=== PATIENT | female | born 1960 | race Caucasian/White ===

== ENCOUNTER 2017-11-17 21:42 | Emergency (ER) | payer MEDICAID ==
[~2017-11-17] VITALS: Ht 165.1 cm; Wt 87.5 kg
[~2017-11-17 21:42] MED LIST: AMLODIPINE BESYL5 M1 PO; BENAZEPRIL10 M1 PO; GOOD SENSE ASPI81 M3 PO; NEU300 PO; NEURONTIN600 MG PO; PRILOSEC20 MG PO; ROBAXIN500 MG; TRAZODONE HYDR100 MG PO; WELLBUTRIN XL150 M1 PO
[2017-11-17 21:52] VITALS: Ht 165.1 cm; Wt 87.5 kg
[2017-11-18 01:02] VITALS: BP 159/99
== END 2017-11-18 01:03 | disposition home or self-care (01) ==
LOC: ED 21:42
DX: G44.209 Tension-type headache, unspecified, not intractable (principal); I10 Essential (primary) hypertension; J45.909 Unspecified asthma, uncomplicated; M06.9 Rheumatoid arthritis, unspecified; Z88.2 Allergy status to sulfonamides
CPT/HCPCS: J1885; J8597

== ENCOUNTER 2019-05-14 11:30 | Inpatient (IN) | payer MEDICAID ==
[~2019-05-14] VITALS: Ht 165.1 cm; Wt 88.0 kg
[~2019-05-14 11:30] MED LIST changes: +PRILOSEC OTC20 M1; -PRILOSEC20 MG PO
[2019-05-14 11:51] VITALS: Ht 165.1 cm; Wt 88.0 kg
--- NOTE | 2019-05-14 13:34 | NUR ---
PATIENT AAOX4 PRESENTS TO THE ED WITH C/O ONGOING FLU LIKE SYMPTOMS X 10 DAYS WITH NO RELIEF FROM OTC MEDICATIONS. PT STS SHE HAS HAD A PRODUCTIVE COUGH WITH SAMUEL LIKE PHLEGM, N/V/D. BREATHING E/U, SKIN WARM DRY AND INTACT. NO OTHER SS OF DISTRESS NOTED. PT PLACED ON MONITORS FOR FURTHER OBSERVATION. WILL CONTINUE TO MONITOR.
--- NOTE | 2019-05-14 14:00 | NUR ---
PATIENT LYING ON GURNEY- NAD NOTED. WILL CONTINUE TO MONITOR.
[2019-05-14 14:33] LABS: BASOPHIL % 0.2 % (0-2); PLATELET COUNT 148 x10^3mcL (130-400); RED CELL DISTRIBUTION WIDTH 14.3 % (11.5-14.5)
[2019-05-14 14:54] LABS: CALCIUM 8.3 mg/dL (8.5-10.1); CARBON DIOXIDE 29.3 mmol/L (21-32); CHLORIDE SERUM 100 mmol/L (98-107); CREATININE SERUM 0.7 mg/dL (0.6-1.0); GFR1 > 60 mL/min; GLUCOSE SERUM 224 mg/dL (74-106); POTASSIUM SERUM 3.2 mmol/L (3.5-5.1); SODIUM SERUM 137 mmol/L (136-145)
[2019-05-14 15:08] LABS: ALBUMIN 3.6 g/dL (3.4-5.0); ALKALINE PHOSPHATASE 83 U/L (46-116); ALT/SGPT 72 U/L (14-59); AST/SGOT 51 U/L (15-37); BILIRUBIN TOTAL 0.44 mg/dL (0.20-1.00); CHOLESTEROL 198 mg/dL (<200); HDL CHOLESTEROL 41 mg/dL (40-60); LIPASE 145 IU/L (73-393); T4(THYROXINE) 8.1 ug/dL (4.7-13.3); TOTAL PROTEIN, SERUM 8.1 g/dL (6.4-8.2)
[2019-05-14 16:54] LABS: UA SPECIFIC GRAVITY 1.015 (1.005-1.035); microscopic required? YES; urine erythrocyte NEGATIVE (NEGATIVE)
[2019-05-14 17:05] LABS: AMPHETAMINE QUAL UR NONE DETECTED (See below)
--- NOTE | 2019-05-14 17:13 | NUR ---
PATIENT LYING ON GURNEY WITH DAUGHTER BEDSIDE WHILE PATIENT IS "TEXTING" ON PHONE. NO SS OF DISTRESS NOTED. WILL CONTINUE TO MONITOR.
[2019-05-14] MEDS ORDERED: LOSARTAN POTASS25 M1 PO (17:27)
[2019-05-14] MEDS ORDERED: BASAGLAR K100 UNIT/1 (17:27)
[2019-05-14] MEDS ORDERED: PREDNISONE2.5 MG PO (17:27)
[2019-05-14] MEDS ORDERED: CUTIVATE0.05% (17:28)
[2019-05-14] MEDS ORDERED: ENBREL25 MG/0.5 (17:29)
[2019-05-14] MEDS ORDERED: HYDROXYZINE HYD25 MG PO (17:30)
[2019-05-14] MEDS ORDERED: ESCITALOPRAM20 M1 PO (17:30)
[2019-05-14 17:38] VITALS: BP 168/96
--- NOTE | 2019-05-14 17:44 | NUR ---
PT MEDICATED PER EMAR.
--- NOTE | 2019-05-14 17:58 | NUR ---
REPORT PROVIDED TO JESSI FOR CONTINUED CARE OF PATIENT.
--- NOTE | 2019-05-14 18:40 | NUR ---
PT CAME FROM ED BY TREVIN ACCOMPANIED BY DAUGHTER. HILARIO WATSON GAVE REPORT. PT IS AAOX4. LUNG SOUNDS DIMINISHED BILATERALLY. PT HAS C/O COUGH WITH GREEN PHLEGM. ON R/A. TELE [address] READ[address] NST WITH DEPRESSED T WAVE. PT DENIES C/P AT THIS TIME. ABDOMEN SOFT, NONTENDER, ROUND. BOWEL SOUNDS ACTIVE X4 QUADS. PT HAS C/O VOMITING INTERMITTENTLY THE LAST 10 DAYS. IV CATH TO RFA WITH FLUIDS RUNNING. SITE WNL. NO S/S OF INFECTION OR INFILTRATION NOTED. REPORTED TO DR. MACIAS, NO NEW ORDERS AT THIS TIME. VS 97.6F, HR 72, RR 18, B/P 181/97, O2 SAT 99 ON R/A. PT JUST RECEIVED CATAPRES IN ED. WILL CONTINUE TO MONITOR B/P. PT ORIENTED TO ROOM AND CALL LIGHT. WILL ENDORSE ALL CARE TO NICO RICH.
[2019-05-14 18:41] VITALS: BP 181/97
--- NOTE | 2019-05-14 19:35 | NUR ---
RECEIVED PT FROM PENELOPE BERRIOS RN. PT AA0X4 DENIES SAAB/DIZZINESS. BREATHING EVEN AND UNLABORED ON RA WITH NO SOB NOTED. PT HAS TELE #2 NSR WITH DEPRESSED T WAVE. DENIES CHEST PAIN/PRESSURE. IV PATENT, INFUSING WELL. PT AMBULATORY. PT DENIES ANY PAIN. NO SIGNS OF ACUTE DISTRESS. FAMILY AT BEDSIDE. CALL BUTTON WITHIN REACH. SAFETY PRECAUTIONS IN PLACE. WILL CONTINUE TO MONITOR.
[2019-05-14 21:02] VITALS: BP 133/70
--- NOTE | 2019-05-15 01:34 | NUR ---
PT RESTING. NO ACUTE DISTRESS NOTED. CALL BUTTON WITHIN REACH. SAFETY PRECAUTIONS IN PLACE. WILL CONTINUE TO MONITOR.
--- NOTE | 2019-05-15 04:57 | NUR ---
PT SLEPT MOST OF THE NIGHT WITH NO ACUTE DISTRESS NOTED. BREATHING EVEN AND UNLABORED ON RA WITH NO SOB NOTED. IV PATENT, INFUSING WELL. PT MEDICATED PER EMAR. PT AMBULATORY WITH BRP. PT DENIES CHEST PAIN. NO ACUTE DISTRESS NOTED. CALL BUTTON WITHIN REACH. SAFETY PRECAUTIONS IN PLACE. WILL CONTINUE TO MONITOR AND ENDORSE CARE TO DAY SHIFT RN.
[2019-05-15 05:44] VITALS: BP 148/75
[2019-05-15 06:26] LABS: CALCIUM 8.2 mg/dL (8.5-10.1); CARBON DIOXIDE 27.1 mmol/L (21-32); CHLORIDE SERUM 103 mmol/L (98-107); CREATININE SERUM 0.8 mg/dL (0.6-1.0); GFR1 > 60 mL/min; GLUCOSE SERUM 281 mg/dL (74-106); MAGNESIUM 2.1 mg/dL (1.8-2.4); PHOSPHOROUS 2.5 mg/dL (2.5-4.9); POTASSIUM SERUM 3.9 mmol/L (3.5-5.1); SODIUM SERUM 137 mmol/L (136-145)
[2019-05-15 06:59] LABS: BASOPHIL % 0.1 % (0-2); PLATELET COUNT 138 x10^3mcL (130-400); RED CELL DISTRIBUTION WIDTH 14.3 % (11.5-14.5)
--- NOTE | 2019-05-15 07:12 | NUR ---
REPORT TAKEN FROM SUPERINTENDENT POLICE NURSE, PATIENT RESTING AT THIS TIME, IN NO ACUTE DISTRESS, WILL CONTINUE TO MONITOR
--- NOTE | 2019-05-15 07:33 | NUR ---
PT RESTING. DENIES PAIN. NO ACUTE DISTRESS NOTED. CALL BUTTON WITHIN REACH. SAFETY PRECAUTIONS IN PLACE. ENDORSED CARE TO DAY SHIFT RN, ALL QUESTIONS ADDRESSED.
[2019-05-15 08:00] VITALS: BP 137/86
--- NOTE | 2019-05-15 09:18 | NUR ---
ECHO AND US GALLBLADDER COMPLETE, PATIENT SITTING IN CHAIR NEXT TO BED, EATING AT THIS TIME. METOPROLOL HELD DUE TO HR OF 55-6O, PATIENT DENIED CHEST PAIN OR PRESSURE, WILL CONTINUE TO MONITOR.
[2019-05-15 12:24] VITALS: BP 141/78
[2019-05-15 16:20] VITALS: BP 165/81
--- NOTE | 2019-05-15 19:07 | NUR ---
REPORT GIVEN TO TILE MOLDER NURSE CARE ENDORSED
--- NOTE | 2019-05-15 19:30 | NUR ---
RECEIVED PT FROM HILARIO WHEATLEY. PT SEEN LYING IN BED, AAOX4. DENIES HEADACHE/ DIZZINESS. ABLE TO FOLLOW COMMANDS. NO SOB NOTED, LUNG SOUNDS CTA. DENIES CHEST PAIN/PRESSURE. DENIES ABDOMINAL DISCOMFORT. VOIDS. IV SITE PATENT AND INTACT. SIDE RAILS UPX2. CALL LIGHT ON REACH. WILL CONT TO MONITOR
[2019-05-15 20:30] VITALS: BP 164/73
--- NOTE | 2019-05-15 21:56 | NUR ---
PT PLACED BACK ON TELE #2, SR ON THE MONITOR
--- NOTE | 2019-05-16 03:53 | NUR ---
PT HAS HER EYES CLOSED, NO S/S OF PAIN AND SOB. CALL LIGHT ON REACH. WILL CONT TO MONITOR
[2019-05-16 05:20] VITALS: BP 146/69
--- NOTE | 2019-05-16 06:28 | NUR ---
PT AWAKE, NO C/O PAIN AND SOB. IV SITE PATENT AND INTACT. NEEDS ARE ATTENDED. CALL LIGHT ON REACH. WILL CONT TO MONITOR
--- NOTE | 2019-05-16 07:23 | NUR ---
BEDSIDE REPORT GIVEN TO GERALDO FOR CONTINUITY OF CARE
[2019-05-16 07:25] LABS: BASOPHIL % 0 % (0-2); PLATELET COUNT 128 x10^3mcL (130-400); RED CELL DISTRIBUTION WIDTH 14.1 % (11.5-14.5)
--- NOTE | 2019-05-16 07:45 | NUR ---
RECEIVED PT IN BED. ASSESSED AND DOCUMENTED. DENIES PAIN THIS TIME. STABLE. SAFTEY PRECAUTIONS ARE IN PLACE. WILL MONITOR.
[2019-05-16 07:46] LABS: CALCIUM 8.2 mg/dL (8.5-10.1); CARBON DIOXIDE 21.9 mmol/L (21-32); CHLORIDE SERUM 103 mmol/L (98-107); CREATININE SERUM 0.7 mg/dL (0.6-1.0); GFR1 > 60 mL/min; GLUCOSE SERUM 286 mg/dL (74-106); MAGNESIUM 2.4 mg/dL (1.8-2.4); PHOSPHOROUS 3.4 mg/dL (2.5-4.9); SODIUM SERUM 137 mmol/L (136-145)
[2019-05-16 08:55] VITALS: BP 187/95
--- NOTE | 2019-05-16 09:30 | NUR ---
PT BP IS 187/95 WITH MAP 122, INFORMED STEEL DIVISION SUPERVISOR KENIA. COZZAR PO GIVEN ORDERED. PT ASYMPTAMATIC. WILL RECHECK.
[2019-05-16] MEDS ORDERED: LOSARTAN POTASS25 M1 PO (11:22)
[2019-05-16 12:15] VITALS: BP 178/87; BP 183/94
--- NOTE | 2019-05-16 12:53 | NUR ---
RECHECKED PT BP IS 178/87 WITH MAP 122, INFORMED HARDWARE MANAGER KENIA ABOUT THAT AND HYDRALAZINE IV 10MG GIVEN ORDERED. WILL RECHECK BP. PT STATED HEADACHE,08/25. TYLENOL PO GIVEN AND WILL REASSESS.
--- NOTE | 2019-05-16 13:55 | NUR ---
RECHECKED PT BP AFTER HYDRALAZINE 10MG IV, BP 181/91 WITH MAP 109 IN LEFT ARM AND 186/89 WITH MAP 105 IN RT ARM. PT STATED " THIS IS MY NORMAL BP, I FEEL FINE, I KNOW MY BODY, I WANT TO GO HOME". INFORMED OPERATOR CAVITY PUMP KENIA ABOUT BP AND WHAT PT SAID. PER OPERATOR CAVITY PUMP PT CLEAR TO DISCHARGE HOME. CHARGE NURSE AWARE. PT ASYMPTAMATIC FOR HYPERTENSION, DENIES HEADACHE THIS TIME.
[2019-05-16 14:08] VITALS: BP 181/91
--- NOTE | 2019-05-16 14:48 | NUR ---
DISCHARGE INSTRUCTIONS GIVEN. EDUCATED PT ABOUT RISK OF HYPERTENSION AND STROKE. PT SAID SHE FEEL FINE. PB SIGNED AND SENT WITH PT. IV REMOVED AND DRESSING APPLIED. TELE REMOVED AND RETURNED. STABLE. RN UTILIZATION MANAGEMENT UM WHEELED PT DOWN TO LOBBY ACCOMAPNIED WITH FAMILY. PT DC HOME. NO DISTRESS NOTED.
== END 2019-05-16 14:53 | disposition home or self-care (01) | DRG 145 ==
LOC: ED 11:30 → DU 17:06 → MU 05-15 19:14 → DU 05-15 21:46
PROVIDERS: Emergency Medicine; ADMIT General Practice
DX: R09.1 Pleurisy (principal); D68.69 Other thrombophilia; E87.2 Acidosis; E11.65 Type 2 diabetes mellitus with hyperglycemia; F33.9 Major depressive disorder, recurrent, unspecified; J20.9 Acute bronchitis, unspecified; J44.0 Chronic obstructive pulmonary disease with (acute) lower respiratory infection; M32.9 Systemic lupus erythematosus, unspecified; E86.0 Dehydration; E87.6 Hypokalemia; G40.909 Epilepsy, unspecified, not intractable, without status epilepticus; I16.0 Hypertensive urgency; F41.1 Generalized anxiety disorder; M06.9 Rheumatoid arthritis, unspecified; F14.21 Cocaine dependence, in remission; F11.21 Opioid dependence, in remission; Z79.82 Long term (current) use of aspirin; Z79.4 Long term (current) use of insulin; Z68.32 Body mass index [BMI] 32.0-32.9, adult; Z87.891 Personal history of nicotine dependence
CPT/HCPCS: 36600; 82962; 83880; 87804; 94150; G0378; J0360; J1815; J1956; J2920; J2930; J7030; J7620; Q0092

== ENCOUNTER 2019-09-26 12:50 | Emergency (ER) | payer MEDICAID ==
[~2019-09-26] VITALS: Ht 165.1 cm; Wt 89.4 kg
[~2019-09-26 12:50] MED LIST changes: +BASAGLAR K100 UNIT/1; +CUTIVATE0.05%; +ENBREL25 MG/0.5; +ESCITALOPRAM20 M1 PO; +HYDROXYZINE HYD25 MG PO; +LOSARTAN POTASS25 M1 PO; +PREDNISONE2.5 MG PO
[2019-09-26 12:55] VITALS: Ht 165.1 cm; Wt 89.4 kg
[2019-09-26 14:17] LABS: BASOPHIL % 0.3 % (0-2); PLATELET COUNT 163 x10^3mcL (130-400); RED CELL DISTRIBUTION WIDTH 14.3 % (11.5-14.5)
[2019-09-26 14:24] LABS: CALCIUM 9.2 mg/dL (8.5-10.1); CARBON DIOXIDE 25.1 mmol/L (21-32); CREATININE SERUM 1.1 mg/dL (0.6-1.0); POTASSIUM SERUM 4.7 mmol/L (3.5-5.1)
[2019-09-26 14:28] LABS: ALBUMIN 3.4 g/dL (3.4-5.0); BILIRUBIN TOTAL 0.5 mg/dL (0.20-1.00); CHOLESTEROL/HDL RATIO 4.9; TOTAL PROTEIN, SERUM 7.5 g/dL (6.4-8.2)
[2019-09-26 14:37] LABS: T3 TOTAL 0.87 ng/mL
[2019-09-26 14:37] LABS: microscopic required? NO
[2019-09-26 14:50] LABS: UA SPECIFIC GRAVITY 1.015 (1.005-1.035); urine erythrocyte NEGATIVE (NEGATIVE)
[2019-09-26 15:11] LABS: FREE T4 1.31 ng/dL (0.76-1.46); T4(THYROXINE) 7.1 ug/dL (4.7-13.3)
[2019-09-26 16:52] VITALS: BP 140/78
== END 2019-09-26 15:28 | disposition home or self-care (01) ==
LOC: ED 12:50
PROVIDERS: Specialist
DX: K52.9 Noninfective gastroenteritis and colitis, unspecified (principal); E11.65 Type 2 diabetes mellitus with hyperglycemia; J45.909 Unspecified asthma, uncomplicated; I10 Essential (primary) hypertension; E11.9 Type 2 diabetes mellitus without complications; Z98.890 Other specified postprocedural states; Z90.89 Acquired absence of other organs; Z88.1 Allergy status to other antibiotic agents; Z88.2 Allergy status to sulfonamides
CPT/HCPCS: 82962; 83880; 84439; J2405; J3010; J7030; Q0092; Q9967